=== PATIENT | female | born 1990 | race Caucasian/White ===

== ENCOUNTER 2021-12-11 11:59 | Outpatient (CLI) | payer OTHER | END 2021-12-11 12:35 | disposition home or self-care (01) | LOC: NST 11:59 | PROVIDERS: ATTEND Obstetrics & Gynecology Maternal & Fetal Medicine | DX: Z34.83 Encounter for supervision of other normal pregnancy, third trimester (principal) ==

== ENCOUNTER 2022-01-03 05:58 | Inpatient (IN) | payer OTHER ==
[~2022-01-03] VITALS: Ht 157.5 cm; Wt 83.0 kg
[2022-01-03] MEDS ORDERED: PRENATAL TABLE1 EAC3 (08:38)
== END 2022-01-05 12:35 | disposition home or self-care (01) | DRG 798 ==
LOC: LDR 05:58 → SURG-SUITE 05:58 → OB/GYN 07:00 → SURG-SUITE 08:04 → OB/GYN 09:30 → SURG-SUITE 01-05 12:35 → OB/GYN 01-14 12:06
PROVIDERS: ADMIT Obstetrics & Gynecology Maternal & Fetal Medicine; ATTEND Obstetrics & Gynecology Maternal & Fetal Medicine
PROC: 0UB70ZZ Excision of Bilateral Fallopian Tubes, Open Approach (ICD-10-PCS; 2022-01-03)
PROC: 4A1HXCZ Monitoring of Products of Conception, Cardiac Rate, External Approach (ICD-10-PCS; 2022-01-03)
PROC: 0HQ9XZZ Repair Perineum Skin, External Approach (ICD-10-PCS; 2022-01-03)
PROC: 10E0XZZ Delivery of Products of Conception, External Approach (ICD-10-PCS; principal; 2022-01-03 07:00)
DX: O70.0 First degree perineal laceration during delivery (principal); Z37.0 Single live birth; Z30.2 Encounter for sterilization; Z3A.38 38 weeks gestation of pregnancy; Z20.822 Contact with and (suspected) exposure to COVID-19